=== PATIENT | female | born 1970 | race Caucasian/White ===

== ENCOUNTER 2018-08-26 14:09 | Emergency (ER) | payer OTHER ==
[~2018-08-26] VITALS: Ht 162.6 cm; Wt 54.4 kg
[~2018-08-26 14:09] MED LIST: ACCUNEB SO1.25 MG/1 INH; ADVAIRDISKUS; ALPRAZOLAM ER2 MG; AMOXICILLIN875 MG PO; AUGMENTIN 875-1 EACH PO; AUGMENTIN 875875 M1 PO; AUGMENTIN 875875 MG PO; CARISOPRODOL 3350 MG PO; CHANTIX1 MG; CYCLOBENZAPRINE10 MG PO; CYMBALTA PO; CYMBALTA60 MG; DICLOFENAC SOD50 M1 PO; DOXEPIN; DOXEPIN 50MG CA50 M1; DOXEPIN 50MG CA50 M1 PO; FLEXERIL PO; HTN MED; HYDROXYZINE HCL25 M1; IBUPROFEN 200200 M1 PO; IBUPROFEN 800800 M1 PO; LORTAB 5 MG/5001 TA1 PO; LORTAB 5 MG/5001 TAB PO; NAPROSYN500 MG PO; NOHOMEMEDICATIONS; NORCO 10-325 T1 EACH PO; NORCO 5-325 TA1 EACH PO; NORFLEX100 MG PO; PREDNISONE 20 M20 MG PO; PREDNISONE50 MG PO; PROAIR HFA8.5 GM INH; SEROQUEL XR50 MG; SPIRIVA; SPIRIVA INH; ULTRAM 50MG TAB50 MG PO; VENTOLIN HFA 1818 GM INH; VENTOLIN17 GM; XANAX 0.25 MG0.25 MG PO; XANAX 0.5 MG0.5 M1 PO; XANAX XR2 MG PO
[2018-08-26] MEDS ORDERED: SPIRIVA INH (14:17)
[2018-08-26] MEDS ORDERED: HYDROXYZINE HCL25 M2 PO (14:28)
[2018-08-26 14:40] VITALS: BP 105/80
== END 2018-08-26 14:41 ==
LOC: M.ERS 14:09
DX: S40.862A Insect bite (nonvenomous) of left upper arm, initial encounter (principal); S40.861A Insect bite (nonvenomous) of right upper arm, initial encounter; S80.862A Insect bite (nonvenomous), left lower leg, initial encounter; S80.861A Insect bite (nonvenomous), right lower leg, initial encounter; J44.9 Chronic obstructive pulmonary disease, unspecified; F41.9 Anxiety disorder, unspecified; F32.9 Major depressive disorder, single episode, unspecified; F17.210 Nicotine dependence, cigarettes, uncomplicated; Z88.5 Allergy status to narcotic agent; Z88.8 Allergy status to other drugs, medicaments and biological substances; W57.XXXA Bitten or stung by nonvenomous insect and other nonvenomous arthropods, initial encounter; Y93.89 Activity, other specified; Y92.89 Other specified places as the place of occurrence of the external cause; Y99.8 Other external cause status